=== PATIENT | male | born 1970 | race Hispanic/Latino ===

== ENCOUNTER → 2023-07-10 07:58 | Outpatient (CLI) | payer OTHER, SELFPAY ==
--- NOTE | 2023-07-10 08:02 | DI.RAD.S_ITS ---
PROCEDURE: XR LUMBAR SPINE MIN 4V INDICATIONS: BACK PAIN TECHNIQUE: 5 views of the lumbar spine were acquired, including bilateral oblique views. COMPARISON: None. FINDINGS: Bones: 5 nonrib-bearing vertebrae are present. There is normal bony alignment. Degenerative endplate changes are noted throughout lumbar spine. No significant loss of disc height. No vertebral body compression fractures. No suspicious bony lesions. Soft tissues: Overlying bowel gas pattern is normal. No suspicious soft tissue calcifications. Oblique images: No pars defects. IMPRESSION: Mild degenerative disc disease throughout lumbar spine. No acute compression fracture or spondylolisthesis. No pars defects. Dictated by: Quintin Schreiber M.D. on 07/10/2023 at 10:57 Approved by: Quintin Schreiber M.D. on 07/10/2023 at 10:57
== END ==
PROVIDERS: PCP Chiropractor; Referring Provider Anesthesiology; Visit Provider Anesthesiology
DX: M51.36 Other intervertebral disc degeneration, lumbar region (principal); M54.9 Dorsalgia, unspecified
CPT/HCPCS: 72110; 99214

== ENCOUNTER → 2023-11-03 15:49 | Outpatient (CLI) | payer OTHER, SELFPAY ==
--- NOTE | 2023-11-03 15:51 | DI.MRI.S_ITS ---
PROCEDURE: MR LUMBAR SPINE WO CON INDICATIONS: Lumbar radiculopathy TECHNIQUE: Noncontrast sagittal T1 spin echo and T2 fast echo, sagittal STIR, and T2 fast spin echo through the lumbar spine. In cases with scoliosis, additional coronal T2 fast spin echo may be performed. COMPARISON: [facility], MR, MR LUMBAR SPINE WO CON, 11/17/2016, 7:59. FINDINGS: Image quality: Excellent. Alignment and Curvature: Straightening of the normal lumbar lordosis. Bone Marrow: Marrow is of normal overall signal. No acute vertebral body compression fractures. Spinal Cord: Conus medullaris terminates at the L1 level. Visualized cord demonstrates normal signal and size. Paraspinous Soft Tissues: No paravertebral masses. T12-L1: Normal appearance. L1-L2: Normal appearance. L2-L3: Normal appearance. L3-L4: Mild disc desiccation. Facet arthropathy. No significant central canal or neural foraminal stenosis. L4-L5: Disc desiccation and mild height loss. Mild diffuse disc bulge. Facet arthropathy. Epidural lipomatosis. Mild central canal stenosis. Mild bilateral neural foraminal stenosis is stable. L5-S1: Severe disc desiccation height loss. Diffuse disc bulge. Facet arthropathy. Epidural lipomatosis. Stable moderate central canal stenosis. Stable severe left and moderate right neural foraminal stenosis. IMPRESSION: 1. Multilevel degenerative changes of the lumbar spine are stable compared to prior exam. 2. Mild central canal stenosis at L4-5 and L5-S1. 3. Severe left neural foraminal stenosis and moderate right neural foraminal stenosis at L5-S1. Dictated by: Eusebio Cochran M.D. on 11/03/2023 at 16:58 Approved by: Eusebio Cochran M.D. on 11/03/2023 at 17:02
== END ==
LOC: MRI 15:50
PROVIDERS: PCP Chiropractor; Referring Provider Anesthesiology; Visit Provider Anesthesiology
DX: M47.26 Other spondylosis with radiculopathy, lumbar region (principal); M47.27 Other spondylosis with radiculopathy, lumbosacral region; M48.061 Spinal stenosis, lumbar region without neurogenic claudication; M48.07 Spinal stenosis, lumbosacral region
CPT/HCPCS: 72148

== ENCOUNTER 2024-03-13 10:20 | Outpatient (CLI) | payer OTHER, SELFPAY ==
--- NOTE | 2024-03-13 10:30 | DI.RAD.S_ITS ---
PROCEDURE: PAIN L INTERLAMINAR/CAUDAL INJ INDICATIONS: L5-S1 interlaminar PEG COMPARISON: None. FINDINGS: Fluoroscopic spot filming was performed to verify placement of spinal needle at the L5-S1 level, as labeled on the films. Appropriate location of the needle tip was confirmed by injection of iodinated contrast. IMPRESSION: Intraprocedural examination demonstrates appropriate needle positioning. Approved by: Rivera Jeff M.D. on 03/13/2024 at 21:07
[2024-03-13 10:50] VITALS: BP 177/86; PULSE 65; RESP 16; TEMP 36.6; O2SAT 98
[2024-03-13 11:17] VITALS: BP 178/92; PULSE 68; RESP 18; O2SAT 99
[2024-03-13 11:22] VITALS: BP 166/94; PULSE 63; RESP 17; O2SAT 99
[2024-03-13] MEDS: LIDOCAINE 1% (PF) 5 ML INJ (11:24)
[2024-03-13] MEDS: DEXAMETHASONE 10 MG/ML VIAL INJ (11:25)
[2024-03-13] MEDS: iopamidoL 15 ML VIAL 3 ML INJ (11:25)
[2024-03-13 11:27] VITALS: BP 161/90; PULSE 62; RESP 15; O2SAT 100
[2024-03-13 11:33] VITALS: BP 180/99; PULSE 67; RESP 18; O2SAT 99
--- NOTE | 2024-03-13 11:44 | PC.NURSE ---
Transportation Design Engineer services utilized via ED iPad for patient's appointment today.
--- NOTE | 2024-03-13 12:04 | PM.PROC.IR.1 ---
Date/Time/Diagnoses Date of procedure: 03/13/24 Time of procedure: 10:30 Procedure Notes Physician: Demar Pittman Total Fluoroscopy time (seconds): 11 Total sedation minutes: 0 Procedure in detail & Post-procedure care: L5-S1 Interlaminar Epidural Steroid Injection Indications: Hair is presenting for treatment of lumbar radiculopathy with low back and leg pain. Preoperative diagnosis: Lumbar radiculopathy Postoperative diagnosis: Same Focused Examination: Ax3 Mood and affect are normal Vital Signs: VSS Consent: Video general maintenance technician used for consent. Engineer System Administrator number [id number]. Following review of allergies and potential side effects/complications, including, but not necessarily limited to, infection, allergic reaction, local tissue breakdown, stroke, temporary or permanent nerve injury, paralysis, and possible , the patient indicated that they understood and agreed to proceed.? An informed consent document was signed by the patient, witnessed by a nurse and placed in the patient's chart.? Additionally, other treatment options including medications and physical therapy were reviewed with the patient. All questions were answered. Site was then marked. Anesthesia: Local Position: Prone Monitoring: NIBP, Pulse oximetry, 3 lead EKG Needle used: 18 G 3.5? Tuohy Contrast: Isovue 300M Injectate: Dexamethasone 10 mg with 1% lidocaine 2 mL Technique: The skin was prepped with chloraprep and then draped in a sterile fashion. Time out was performed as per protocol. Oxygen applied via NC. Skin and subcutaneous structures of the needle entry site was then infiltrated with 3 mL of lidocaine 1%. Under AP, lateral and contralateral oblique fluoroscopic control, the Tuohy needle was guided into the L5-S1 epidural space. The space was accessed with loss of resistance technique. Isovue 300M was then injected and the spread was consistent with the epidural space. There was no evidence for intravascular or intrathecal uptake. After negative aspiration, the above-mentioned injectate was then slowly administered and the needle withdrawn. The patient expressed no unusual discomfort or paresthesias during the injection. Band-Aids applied to injection sites. EBL: less than 1 ml Complications: None Post Procedure: Patient was taken to the recovery and monitored. The patient was provided a Pain Log to continue to record the patient's response to the target-specific procedure prior to the patient's follow-up visit with the referring physician. Patient was stable upon discharge. Detailed post procedure instructions were provided. Patient was asked to call in the event of worsening pain, fever, weakness, numbness or bladder or bowel incontinence.
== END 2024-03-13 11:33 | disposition home or self-care (01) ==
PROVIDERS: PCP Chiropractor; Referring Provider Anesthesiology; Visit Provider Anesthesiology
DX: M54.16 Radiculopathy, lumbar region (principal)
CPT/HCPCS: 62323; J1100